=== PATIENT | male | born 1965 | race African-American/Black ===

== ENCOUNTER 2024-03-24 17:05 | Emergency (ER) | payer MEDICAID ==
[~2024-03-24] VITALS: Ht 182.9 cm; Wt 91.0 kg
[~2024-03-24 17:05] MED LIST: AMLO10TA80 PO; ASPI-986 PO; ATOR40TA70 PO; CHLO25TA2 PO
[2024-03-24 17:06] VITALS: BP 160/97; PULSE 106; RESP 16; TEMP 98.2; O2SAT 99
[2024-03-24] MEDS ORDERED: ONDANSETRON 4MG ODT PO ONE (17:30)
[2024-03-24 18:08] LABS: BASOPHILS % 0.2 % (0.0-2.0); CHLORIDE 108 mEq/L (98-107); EOSINOPHILS % 5.4 % (0.0-5.0); HEMATOCRIT. 44.1 % (42.0-52.0); HEMOGLOBIN. 15.2 g/dL (14.0-18.0); LYMPHOCYTES % 14.6 % (20.0-50.0); MEAN CORPUSCULAR HGB CONC 34.5 g/dL (31.0-37.0); MEAN CORPUSCULAR VOLUME 92.6 fL (80.0-94.0); MEAN PLATELET VOLUME 9.2 fl (7.4-10.4); MONOCYTES % 5.9 % (2.0-8.0); NEUTROPHILS % 73.9 % (40.0-76.0); PLATELET 176 x1000/uL (130-400); POTASSIUM 3.3 mEq/L (3.5-5.1); RED BLOOD CELL COUNT 4.76 mill/uL (4.7-6.1); RED CELL DISTRIBUTION WIDTH 13.5 % (11.6-14.6); SODIUM 142 mEq/L (136-145); WHITE BLOOD COUNT 6.9 x1000/uL (4.5-11.0)
[2024-03-24 18:09] LABS: CARBON DIOXIDE 29 mEq/L (21-32)
[2024-03-24 18:10] LABS: CALCIUM 10.1 mg/dL (8.7-10.4)
[2024-03-24 18:14] LABS: CREATININE 1.6 mg/dL (0.6-1.3); GLUCOSE 96 mg/dL (70-105); UREA NITROGEN BLOOD 20 mg/dL (9-23)
[2024-03-24 18:15] LABS: ETHANOL BLOOD < 10 mg/dL (<10); TROPONIN I HIGH SENSITIVITY 8 ng/L (3.0-53)
[2024-03-24] MEDS ORDERED: POTASSIUM CHLORIDE 20MEQ TABLET SR PO NR (18:15)
[2024-03-24 18:40] LABS: INR 0.9; PROTHROMBIN TIME 10.6 sec (9.6-11.0)
[2024-03-24 19:07] LABS: ALANINE AMINOTRANSFERASE 22 IU/L (10-49); ALBUMIN 4.4 g/dL (3.2-4.8); ASPARTATE AMINOTRANSFERASE 21 IU/L (<34); BILIRUBIN DIRECT 0.3 mg/dL (<=3.0); BILIRUBIN TOTAL 0.8 mg/dL (0.1-1.0); PROTEIN TOTAL 7.9 g/dL (6.0-8.3)
== END 2024-03-24 20:27 | disposition home or self-care (01) ==
LOC: ER 17:05
DX: T51.0X1A Toxic effect of ethanol, accidental (unintentional), initial encounter (principal); R11.2 Nausea with vomiting, unspecified; I10 Essential (primary) hypertension; Z86.73 Personal history of transient ischemic attack (TIA), and cerebral infarction without residual deficits; X58.XXXA Exposure to other specified factors, initial encounter
CPT/HCPCS: 36415; 71045; 74176; 80048; 80076; 80320; 84484; 85025; 99284; G0480